=== PATIENT | female | born 1945 | race Caucasian/White ===

== ENCOUNTER → 2017-01-08 | Outpatient (CLI) | payer OTHER ==
[2014-06-03 10:50] VITALS: BP 135/65
--- NOTE | 2017-01-08 15:57 | KCIC ---
Bilateral digital screening mammograms with CAD: HISTORY Routine screening COMPARISON Comparison is made to previous examinations dated 01/07/2016 and 06/26/2014. FINDINGS Breast density category C. The skin and nipples show no abnormalities. No abnormal lymph nodes are seen in the axilla. The breast parenchyma shows heterogeneous density. A small nodule consistent with an intramammary lymph node is again seen at the 2 o'clock position of the left breast. There are no new dominant masses, suspicious calcifications or architectural distortions. IMPRESSION No evidence of malignancy. Recommend routine annual mammographic screening. This study was interpreted with the benefit of Computerized Aided Detection (CAD). Mammography is not 100% sensitive in detecting breast cancer. Therefore, a self breast exam and a clinical breast exam are very important. A negative mammogram does not negate a clinically suspicious finding and should not result in a delay in biopsying a clinically suspicious abnormality. BI-RADS category 2: Benign. This patient's information has been entered into a reminder system for the patient to be notified with the results of this examination and a target date for her next mammograms. Electronically signed by: Cammy Samaniego MD (Jan 08, 2017 15:55:17)
== END | disposition home or self-care (01) ==
LOC: KCIC MAMMO 14:03
PROVIDERS: ATTEND Internal Medicine
DX: Z12.31 Encounter for screening mammogram for malignant neoplasm of breast (principal)
CPT/HCPCS: G0202; 77067

== ENCOUNTER → 2017-01-12 | Outpatient (CLI) | payer OTHER ==
[2014-06-03 10:50] VITALS: BP 135/65
--- NOTE | 2017-01-12 14:32 | KCIC ---
Examination: Ultrasound Doppler right calf superficial vein. HISTORY History of varicosity of the right calf. TECHNIQUE Grayscale, color Doppler 2D, spectral waveform analysis of the superficial varicose veins of the right calf was performed. Findings: Multiple varicosities identified in the region of the right calf. The largest varicosity of the superficial veins demonstrate echogenicity within likely occluded thrombus. IMPRESSION Varicosities identified in the region of the calf with one of the varicose veins demonstrating echogenicity within likely occluded thrombus in the varicose appearing superficial vein. Report will be faxed by the technologist to the ordering physician's office. Electronically signed by: Chris Davis (Jan 12, 2017 14:31:06)
== END | disposition home or self-care (01) ==
LOC: KCIC US 13:41
PROVIDERS: ATTEND Obstetrics & Gynecology
DX: R22.41 Localized swelling, mass and lump, right lower limb (principal); Z86.79 Personal history of other diseases of the circulatory system; M79.604 Pain in right leg
CPT/HCPCS: 93971

== ENCOUNTER → 2018-01-11 | Outpatient (CLI) | payer OTHER | END | disposition home or self-care (01) | LOC: KCIC MAMMO 08:08 | DX: Z12.31 Encounter for screening mammogram for malignant neoplasm of breast (principal) | CPT/HCPCS: 77063; 77067 ==

== ENCOUNTER → 2018-04-06 | Outpatient (CLI) | payer OTHER | END | disposition home or self-care (01) | LOC: KCIC 10:37 | DX: S80.01XA Contusion of right knee, initial encounter (principal); X58.XXXA Exposure to other specified factors, initial encounter; Y93.89 Activity, other specified; Y92.89 Other specified places as the place of occurrence of the external cause; Y99.8 Other external cause status | CPT/HCPCS: 73562 ==

== ENCOUNTER → 2018-04-19 | Outpatient (CLI) | payer OTHER | END | disposition home or self-care (01) | LOC: US 07:40 | DX: I83.811 Varicose veins of right lower extremity with pain (principal); E78.00 Pure hypercholesterolemia, unspecified | CPT/HCPCS: 93971 ==

== ENCOUNTER → 2019-01-12 | Outpatient (CLI) | payer OTHER ==
[2014-06-03 10:50] VITALS: BP 135/65
--- NOTE | 2019-01-12 12:50 | KCIC ---
Bilateral digital screening mammograms with 3-D tomosynthesis: Reason for examination: Routine screening. Comparison is made to previous studies dated 01/11/2018 and 01/08/2017. Bilateral mammograms in CC and oblique projections were obtained with 2-D imaging and 3-D tomosynthesis imaging on a Siemens Inspiration unit and reviewed on the workstation. Interpretation was made with the benefit of CAD. The skin and nipples show no abnormalities. No abnormal axillary lymph nodes are seen. The breast parenchyma is extremely dense. (Breast density: Category D.) There continues to be a small nodule consistent with an intramammary lymph node at the 2:30 C position of the left breast. There are no new dominant masses, suspicious calcifications or architectural distortion. Impression: No evidence of malignancy. Recommend routine screening. Your patient's mammogram demonstrates that she has dense breast tissue (breast density category C or D), which could hide abnormalities, and if she has other risk factors for breast cancer that have been identified, she might benefit from supplemental screening tests that may be suggested by you as her ordering physician. Dense breast tissue, in and of itself, is a relatively common condition. Therefore, this information is not provided to cause undue concern, but rather to raise your awareness and to promote discussion with your patient regarding the presence of other risk factors, in addition to dense breast tissue. Your patient's mammography results will be sent to her. BI-RAD Category 2: Benign. "Our facility is accredited by the [employer] Mammography [employer]." This patient's information has been entered into a reminder system for the patient to be notified with the results of her examination and a target date for the next mammogram. Electronically signed by: Susan Samaniego MD (01/12/2019 12:48 PM) [email or web address]
== END | disposition home or self-care (01) ==
LOC: KCIC MAMMO 07:43
PROVIDERS: ATTEND Obstetrics & Gynecology
DX: Z12.31 Encounter for screening mammogram for malignant neoplasm of breast (principal)
CPT/HCPCS: 77063; 77067

== ENCOUNTER → 2019-01-12 | Outpatient (CLI) | payer OTHER ==
[2014-06-03 10:50] VITALS: BP 135/65
--- NOTE | 2019-01-12 09:13 | KCIC ---
EXAM: Left knee, 3 views. HISTORY: Fall. COMPARISON: None. FINDINGS: 3 views of the left knee are obtained. There is no fracture, dislocation or subluxation. There is minimal patellar spurring. There is trace joint fluid without a significant effusion. IMPRESSION: No acute osseous finding. Electronically signed by: Nasima Metcalf MD (01/12/2019 9:10 AM) [id number]
== END | disposition home or self-care (01) ==
LOC: KCIC 07:48
PROVIDERS: ATTEND Internal Medicine
DX: M76.892 Other specified enthesopathies of left lower limb, excluding foot (principal)
CPT/HCPCS: 73562

== ENCOUNTER → 2020-02-07 | Outpatient (CLI) | payer OTHER ==
[2014-06-03 10:50] VITALS: BP 135/65
--- NOTE | 2020-02-07 15:40 | KCIC ---
Bilateral digital screening mammograms with 3-D tomosynthesis: Reason for examination: Routine screening. Comparison is made to previous studies dated 01/12/2019 and 01/11/2018. Bilateral mammograms in CC and oblique projections were obtained with 2-D imaging and 3-D tomosynthesis imaging on a Siemens Inspiration unit and reviewed on the workstation. Interpretation was made with the benefit of CAD. The skin and nipples show no abnormalities. No abnormal axillary lymph nodes are seen. The breast parenchyma is extremely dense. (Breast density: Category D.) There continues to be a small nodule consistent with an intramammary lymph node at the 2:30 position posteriorly in the left breast. There are no new dominant masses, suspicious calcifications or architectural distortion. Impression: No evidence of malignancy. Recommend routine screening. Your patient's mammogram demonstrates that she has dense breast tissue (breast density category C or D), which could hide abnormalities, and if she has other risk factors for breast cancer that have been identified, she might benefit from supplemental screening tests that may be suggested by you as her ordering physician. Dense breast tissue, in and of itself, is a relatively common condition. Therefore, this information is not provided to cause undue concern, but rather to raise your awareness and to promote discussion with your patient regarding the presence of other risk factors, in addition to dense breast tissue. Your patient's mammography results will be sent to her. BI-RAD Category 2: Benign. "Our facility is accredited by the [employer] Mammography [employer]." This patient's information has been entered into a reminder system for the patient to be notified with the results of her examination and a target date for the next mammogram. Electronically signed by: Susan Samaniego MD (02/07/2020 3:37 PM) [email or web address]
== END | disposition home or self-care (01) ==
LOC: KCIC MAMMO 09:18
PROVIDERS: ATTEND Internal Medicine
DX: Z12.31 Encounter for screening mammogram for malignant neoplasm of breast (principal)
CPT/HCPCS: 77063; 77067

== ENCOUNTER → 2021-02-19 | Outpatient (CLI) | payer OTHER ==
[2014-06-03 10:50] VITALS: BP 135/65
--- NOTE | 2021-02-19 12:40 | KCIC ---
DXA BONE DENSITY AXIAL History: Postmenopausal screening. Comparison: None. TECHNIQUE: Dual energy x-ray absorptiometry of the lumbar spine and the left hip was performed. T-sco re of average bone mineral density based was calculated based on standard deviations above or below t he expected young adult normal value. Diagnostic definitions were established by the [employer]. FINDINGS: The average bone mineral density associated with L1-L4 is 0.848 g/cm^2, corresponding with a T-score of -1.8. The average total bone mineral density associated with the left hip is 0.753 g/cm^2, corresponding wi th a T-score of -1.5. Refer to the worksheets for full detail. IMPRESSION: 1. Osteopenia. Average bone mineral density yields a T-score between -1.0 and -2.5. Fracture risk is increased. Electronically signed by: Chadwick Dwyer MD (02/19/2021 12:37 PM) [facility]
--- NOTE | 2021-02-19 14:58 | KCIC ---
Bilateral digital screening mammograms with 3-D tomosynthesis: Reason for examination: Routine screening. Comparison is made to previous studies dated back to 01/07/2016. Bilateral mammograms in CC and oblique projections were obtained with 2-D imaging and 3-D tomosynthes is imaging on a Siemens Inspiration unit and reviewed on the workstation. Interpretation was made wit armando the benefit of CAD. The skin and nipples show no abnormalities. No abnormal axillary lymph nodes are seen. The breast par enchyma is extremely dense. (Breast density: Category D.) There continues to be a small intramammary lymph node at the 2:00 position posteriorly in the left breast which is stable. There are no new cris nant masses, suspicious calcifications or architectural distortion. Impression: No evidence of malignancy. Recommend routine screening. Your patient's mammogram demonstrates that she has dense breast tissue (breast density category C or D), which could hide abnormalities, and if she has other risk factors for breast cancer that have bee n identified, she might benefit from supplemental screening tests that may be suggested by you as her ordering physician. Dense breast tissue, in and of itself, is a relatively common condition. Therefo re, this information is not provided to cause undue concern, but rather to raise your awareness and t o promote discussion with your patient regarding the presence of other risk factors, in addition to d ense breast tissue. Your patient's mammography results will be sent to her. BI-RAD Category 2: Benign. "Our facility is accredited by the [employer] Mammography Program." This patient's information has been entered into a reminder system for the patient to be notified wit h the results of her examination and a target date for the next mammogram. Electronically signed by: Susan Samaniego MD (02/19/2021 2:56 PM) [email or web address]
== END ==
LOC: KCIC MAMMO 08:56
PROVIDERS: ATTEND Internal Medicine
DX: Z12.31 Encounter for screening mammogram for malignant neoplasm of breast (principal); N95.9 Unspecified menopausal and perimenopausal disorder; M85.88 Other specified disorders of bone density and structure, other site
CPT/HCPCS: 77063; 77067; 77080

== ENCOUNTER → 2022-03-20 | Outpatient (CLI) | payer MEDICARE ==
[2014-06-03 10:50] VITALS: BP 135/65
--- NOTE | 2022-03-20 09:58 | KCIC ---
INDICATION: 76 years of age asymptomatic female patient presents for screening mammography. TECHNIQUE: Full field craniocaudal and mediolateral oblique images of both breasts were obtained usi ng digital technique with tomosynthesis and also analyzed with computer-aided detection software. COMPARISON: Prior mammographic imaging dating back to 01/08/2017. BREAST COMPOSITION: Category C: The breast tissue is heterogeneously dense, which could obscure detec tion of small masses. FINDINGS: No suspicious masses, microcalcifications or architectural distortion is present to suggest malignanc y in either breast. The visualized axillae are unremarkable. IMPRESSION: No mammographic evidence of malignancy. RECOMMENDATION: Annual screening mammography is recommended, unless clinically indicated sooner based on symptoms or change in physical exam. BIRADS 1: NEGATIVE This study was interpreted with the benefit of Computerized Aided Detection (CAD). ?Your patient's mammogram demonstrates that she has dense breast tissue (breast density category C or D), which could hide abnormalities, and if she has other risk factors for breast cancer that have be en identified, she might benefit from supplemental screening tests that may be suggested by you as he r ordering physician. Dense breast tissue, in and of itself, is a relatively common condition. Theref ore, this information is not provided to cause undue concern, but rather to raise your awareness and to promote discussion with your patient regarding the presence of other risk factors, in addition to dense breast tissue. Your patient's mammography results will be sent to her. Patient information is entered into the reminder system with a target due date for the next screening mammogram. Mammography is the most sensitive method for finding small breast cancers, but it does not detect the m all and is not a substitute for careful clinical examination. A negative mammogram does not negate a clinically suspicious finding and should not result in delay in biopsying a clinically suspicious a bnormality. "Our facility is accredited by the [employer] Mammography Program." Electronically signed by: Erick Acharya DO (03/20/2022 9:55 AM) [facility]
== END ==
LOC: KCIC MAMMO 07:58
PROVIDERS: ATTEND Internal Medicine
DX: Z12.31 Encounter for screening mammogram for malignant neoplasm of breast (principal)
CPT/HCPCS: 77063; 77067